=== PATIENT | male | born 1995 | race African-American/Black ===

== ENCOUNTER 2017-11-21 04:08 | Emergency (ER) | payer BC ==
[~2017-11-21] VITALS: Ht 180.3 cm; Wt 97.1 kg
[2017-11-21 04:08] VITALS: BP_SYST 140
[2017-11-21] MEDS ORDERED: DIPHENHYDRAMINE INJ 50 MG/ML VIAL IM ONE (04:30)
[2017-11-21] MEDS ORDERED: methylPREDNISolone SOD SUCC/PF 62.5 MG/ML VIAL IM ONE (04:30)
[2017-11-21] MEDS ORDERED: EPINEPHrine 1 MG/ML AMP SUBCUT ONE (04:30)
[2017-11-21 06:00] VITALS: BP_SYST 133
== END 2017-11-21 06:00 | disposition home or self-care (01) ==
LOC: SED 04:08
DX: L50.9 Urticaria, unspecified (principal); Z91.013 Allergy to seafood
CPT/HCPCS: 96372; 99284; J0171; J1200; J2930; J7030

== ENCOUNTER 2017-11-21 11:26 | Emergency (ER) | payer BC ==
[~2017-11-21] VITALS: Ht 180.3 cm; Wt 97.1 kg
[2017-11-21 11:49] VITALS: BP_SYST 144
--- NOTE | 2017-11-21 13:14 | NUR ---
Pt to [facility] chair 1 for exam.
[2017-11-21] MEDS: NACL 0.9% 1,000 ML IV ONE (14:37)
[2017-11-21] MEDS: EPINEPHrine 1 MG/ML AMP IM ONE (14:37)
[2017-11-21] MEDS: DIPHENHYDRAMINE INJ 50 MG/ML VIAL IVP ONE (14:38)
[2017-11-21] MEDS: FAMOTIDINE PF 20 MG/2 ML VIAL IVP ONE (14:38)
--- NOTE | 2017-11-21 15:14 | NUR ---
Patient given written and verbal discharge instructions and verbalizes understanding. ER Joan RADIOLOGICAL TECHNICIAN discussed with patient the results and treatment provided. Patient in stable condition. ID arm band removed. IV catheter removed intact and dressing applied, no active bleeding. Rx of Prednisone given. Patient educated on pain management and to follow up with PMD. Pain Scale 0. Opportunity for questions provided and answered.
[2017-11-21 15:20] VITALS: BP_SYST 136
== END 2017-11-21 15:14 | disposition home or self-care (01) ==
LOC: SED 11:26
DX: L50.9 Urticaria, unspecified (principal); R03.0 Elevated blood-pressure reading, without diagnosis of hypertension; Z91.013 Allergy to seafood
CPT/HCPCS: 96372; 96374; 96375; 99284; J0171; J1200; J3490; J7030